=== PATIENT | male | born 1940 | race Caucasian/White ===

== ENCOUNTER 2022-12-15 10:19 | Emergency (ER) | payer MEDICARE ==
[~2022-12-15] VITALS: Ht 190.5 cm; Wt 104.8 kg
[2022-12-15 10:24] VITALS: BP 165/98; PULSE 84; RESP 16; O2SAT 97
[2022-12-15] MEDS ORDERED: METR375C2 PO (11:13)
[2022-12-15] MEDS ORDERED: HYDR-3421 PO (11:13)
[2022-12-15] MEDS ORDERED: CEPH500C2 PO (11:13)
== END 2022-12-15 11:44 | disposition home or self-care (01) ==
LOC: EDH 10:19
DX: L29.8 Other pruritus (principal); R21 Rash and other nonspecific skin eruption; I10 Essential (primary) hypertension; E78.00 Pure hypercholesterolemia, unspecified; Z90.49 Acquired absence of other specified parts of digestive tract

== ENCOUNTER 2024-01-15 12:00 | Emergency (ER) | payer MEDICARE ==
[~2024-01-15] VITALS: Ht 190.5 cm; Wt 104.3 kg
[~2024-01-15 12:00] MED LIST: CEPH500C2 PO; HYDR-3421 PO; METR375C2 PO
[2024-01-15 14:48] LABS: APPEARANCE,URINE CLEAR (CLEAR); BILIRUBIN,URINE NEGATIVE (NEGATIVE); COLOR,URINE LIGHT-YELLOW (YELLOW); GLUCOSE, URINE (UA) NEGATIVE (NEGATIVE); KETONES,URINE NEGATIVE (NEGATIVE); LEUKOCYTE ESTERASE ,URINE 250 Leu/uL (NEGATIVE); NITRATE,URINE NEGATIVE (NEGATIVE); OCCULT BLOOD,URINE NEGATIVE (NEGATIVE); PROTEIN,URINE NEGATIVE (NEGATIVE); UROBILINOGEN,URINE 0.2 mg/dL (0.2-1.0)
[2024-01-15 14:51] LABS: ADD UA MICROSCOPIC YES
[2024-01-15 14:56] LABS: RBC,URINE 0-1 /HPF (0-1)
[2024-01-15 14:57] LABS: BASOPHILS # (AUTO) 0.03 K/uL (0.00-0.20); BASOPHILS % (AUTO) 0.3 % (0.0-5.0); EOSINOPHILS # (AUTO) 0.12 K/uL (0.00-0.70); EOSINOPHILS % (AUTO) 1.3 % (0.0-8.0); HEMATOCRIT 41.1 % (42-54); IMMATURE GRANULOCYTE ABSOLUTE 0.02 K/uL (0-1); LYMPHOCYTES # (AUTO) 1.8 K/uL (1.0-4.8); MEAN CORPUSCULAR HEMOGLOBIN 30.9 pg (27.0-33.0); MEAN CORPUSCULAR HGB CONC 33.3 g/dL (32.0-36.0); MEAN CORPUSCULAR VOLUME 92.6 fL (79-99); MONOCYTES # (AUTO) 0.6 K/uL (0.1-1.0); MONOCYTES % (AUTO) 6.5 % (3.0-13.0); NEUTROPHILS % (AUTO) 72.7 % (40.0-77.0); PLATELET COUNT (AUTO) 214 K/uL (130-400); RED BLOOD CELL COUNT(AUTO) 4.44 MIL/uL (4.50-6.20); RED CELL DISTRIBUTION WIDTH 13.3 % (11.0-15.5); WHITE BLOOD COUNT (AUTO) 9.6 K/uL (4.8-10.8)
[2024-01-15 15:13] LABS: CREATININE 1.1 mg/dL (0.5-1.3)
[2024-01-15] MEDS: CLINDAMYCIN 150 MG CAP PO ONE (15:27)
[2024-01-15] MEDS: acetaMINOPHEN WITH coDEINE 1 TAB TAB PO ONE (15:27)
[2024-01-15] MEDS: LIDOCAINE HCL 1% 20 ML VIAL INJ SCH (15:28)
[2024-01-15] MEDS ORDERED: ACET-2079 PO (16:26)
[2024-01-15] MEDS ORDERED: CLIN-141 PO (16:26)
[2024-01-15 16:37] VITALS: BP 130/70; PULSE 60; RESP 16; TEMP 98; O2SAT 97
== END 2024-01-15 16:54 | disposition home or self-care (01) ==
LOC: EDH 12:00
DX: N49.2 Inflammatory disorders of scrotum (principal); E78.00 Pure hypercholesterolemia, unspecified; Z90.89 Acquired absence of other organs
CPT/HCPCS: 36415; 55100; 76870; 80048; 81001; 85025; 87070; 87086